=== PATIENT | male | born 1965 | race Caucasian/White ===

== ENCOUNTER 2023-10-02 09:59 | Outpatient (CLI) | payer MEDICARE, MEDICAID, SELFPAY ==
[2023-10-11 15:10] LABS: Amphetamines Negative ng/mL (Cutoff: 20); Barbiturates Negative ng/mL (Cutoff: 50); Benzodiazepines Negative ng/mL (Cutoff: 50); Methamphetamine Negative ng/mL (Cutoff: 20)
[2023-10-11 15:11] LABS: Buprenorphine Negative ng/mL (Cutoff: 1)
[2023-10-11 15:12] LABS: Cocaine Negative ng/mL (Cutoff: 20); Methadone Positive ng/mL (Cutoff: 25); Opiates Negative ng/mL (Cutoff: 20)
[2023-10-11 16:46] LABS: Phencyclidine Negative ng/mL (Cutoff: 10)
[2023-10-11 17:02] LABS: Methadone 171 ng/mL
[2023-10-11 17:03] LABS: EDDP <10 ng/mL
[2023-10-11 17:08] LABS: 11-Nor-9-carboxy-THC,S/P <5 ng/mL
== END 2023-10-02 10:00 | disposition home or self-care (01) ==
LOC: LBO 10:01
PROVIDERS: PCP Family Medicine; Visit Provider Family Medicine
DX: G89.4 Chronic pain syndrome (principal)
CPT/HCPCS: 36415; 80349; 80358; 80307; G0480

== ENCOUNTER 2024-06-17 09:35 | Outpatient (CLI) | payer MEDICARE, MEDICAID, SELFPAY ==
--- NOTE | 2024-06-17 09:30 | RT.EKG_ITS ---
APPROVED REPORT Exam: Resting ECG Reason for Exam: CAD Patient Location: O HR:52 bpm ECG Measurements Heart Rate 52 AXIS MO 163 P 12 QRSd 91 QRS 28 QT 408 T 32 QTc 380 Conclusion Sinus rhythm...normal P axis, V-rate 50- 99 Normal Electrocardiogram
== END 2024-06-17 09:36 | disposition home or self-care (01) ==
LOC: DI.CARD 09:36
PROVIDERS: PCP Family Medicine; Visit Provider Internal Medicine Cardiovascular Disease
DX: I25.10 Atherosclerotic heart disease of native coronary artery without angina pectoris (principal)
CPT/HCPCS: 93010

== ENCOUNTER → 2024-06-17 10:53 | Outpatient (BNVA) | payer MEDICARE, MEDICAID, SELFPAY | PROVIDERS: PCP Family Medicine; Referring Provider Family Medicine; Visit Provider Internal Medicine Cardiovascular Disease | DX: I25.2 Old myocardial infarction (principal); F17.210 Nicotine dependence, cigarettes, uncomplicated; G89.29 Other chronic pain; I25.10 Atherosclerotic heart disease of native coronary artery without angina pectoris | CPT/HCPCS: 93005; 99203 ==

== ENCOUNTER 2024-09-23 02:22 | Outpatient (CLI) | payer MEDICARE, MEDICAID, SELFPAY ==
[2024-10-08 10:45] LABS: Amphetamines Negative ng/mL (Cutoff: 20); Barbiturates Negative ng/mL (Cutoff: 50); Benzodiazepines Negative ng/mL (Cutoff: 50); Buprenorphine Negative ng/mL (Cutoff: 1); Cocaine Negative ng/mL (Cutoff: 20); Methamphetamine Negative ng/mL (Cutoff: 20); Opiates Negative ng/mL (Cutoff: 20); Phencyclidine Negative ng/mL (Cutoff: 10)
[2024-10-08 10:47] LABS: Methadone Positive ng/mL (Cutoff: 25)
[2024-10-08 11:04] LABS: EDDP 15 ng/mL; Methadone 360 ng/mL
== END 2024-09-23 02:23 | disposition home or self-care (01) ==
LOC: LOS 02:22
PROVIDERS: PCP Family Medicine; Visit Provider Family Medicine
DX: Z79.891 Long term (current) use of opiate analgesic (principal)
CPT/HCPCS: 36415; 80358; 80307; G0480

== ENCOUNTER 2024-12-08 12:50 | Outpatient (CLI) | payer MEDICARE, MEDICAID, SELFPAY ==
--- NOTE | 2024-12-08 12:00 | DI.RAD_ITS ---
Exam(s) XR HIP RT COMPLETE AP PELVIS EXAM: XR HIP RT COMPLETE AP PELVIS CLINICAL HISTORY: G89.29,M25.559 Pain in hip chronic, Acute worsening. TECHNIQUE: 2D digital imaging was performed of the right hip. Two images were obtained. AP pelvis and lateral right hip views were obtained. COMPARISON: CR XR LUMBAR SPINE 2 OR 3 VIEW from 02/20/2023 FINDINGS: BONES: No acute fracture is present. No bony destructive lesion is seen. There is a mildly prominent bump at the junction of the femoral neck and head suggesting ALEC. JOINTS: No dislocation present. There is mild joint space narrowing of the hips bilaterally. The sacroiliac joints and symphysis pubis are unremarkable. SOFT TISSUE: Atherosclerotic calcification is present. IMPRESSION: Mild arthritic changes seen in the right hip. Unremarkable radiographs of the pelvis. DATA REPOSITORY: RADIATION DOSE DELIVERED:
== END 2024-12-08 13:10 ==
LOC: DI 12:50
PROVIDERS: PCP Family Medicine; Visit Provider Family Medicine
DX: M16.11 Unilateral primary osteoarthritis, right hip (principal)
CPT/HCPCS: 73502

== ENCOUNTER → 2025-01-21 07:58 | Outpatient (BNVA) | payer MEDICARE, MEDICAID, SELFPAY | PROVIDERS: PCP Family Medicine; Referring Provider Family Medicine; Visit Provider Student in an Organized Health Care Education/Training Program | DX: M16.11 Unilateral primary osteoarthritis, right hip (principal); E11.9 Type 2 diabetes mellitus without complications; F17.210 Nicotine dependence, cigarettes, uncomplicated; G89.29 Other chronic pain | CPT/HCPCS: 99214 ==